=== PATIENT | female | born 1960 | race Caucasian/White ===

== ENCOUNTER → 2016-11-08 | Outpatient (CLI) | payer OTHER ==
--- NOTE | 2016-11-08 18:04 | XR ---
EXAMINATION TYPE: XR wrist complete LT DATE OF EXAM: 11/08/2016 5:49 PM COMPARISON: NONE HISTORY: Wrist pain TECHNIQUE: 4 views FINDINGS: I see no fracture nor dislocation. Joint spaces are normal. There are no erosions. IMPRESSION: Negative left wrist exam.
== END | disposition home or self-care (01) ==
LOC: RADXRMAIN 17:10
PROVIDERS: ATTEND Nurse Practitioner Family
DX: S63.502A Unspecified sprain of left wrist, initial encounter (principal)